=== PATIENT | male | born 1990 | race Two or more races ===

== ENCOUNTER 2021-01-30 12:30 | Emergency (ER) | payer OTHER, SELFPAY ==
[~2021-01-30] VITALS: Ht 180.3 cm; Wt 94.9 kg
[2021-01-30 12:41] VITALS: BP 138/45
--- NOTE | 2021-01-30 16:18 | NUR ---
NIL X1
--- NOTE | 2021-01-30 16:31 | NUR ---
[id number]
--- NOTE | 2021-01-30 16:51 | NUR ---
[id number]
== END 2021-01-30 16:54 | disposition left against medical advice (07) ==
LOC: ED 12:30
DX: J34.89 Other specified disorders of nose and nasal sinuses (principal)
CPT/HCPCS: 70160; 99283